=== PATIENT | male | born 1930 | race Caucasian/White ===

== ENCOUNTER 2016-11-09 13:12 | Outpatient (CLI) | payer MEDICARE, OTHER | END 2016-11-09 13:13 | disposition home or self-care (01) | DX: J43.9 Emphysema, unspecified (principal); J98.4 Other disorders of lung ==

== ENCOUNTER 2017-04-18 07:45 | Day surgery (SDC) | payer MEDICARE, OTHER ==
[~2017-04-18 07:45] MED LIST: BRIMONIDINE 0.2% OPHTH DROPS 5 ML ONE; TIMOLOL 0.5% OPHTH DROPS ONE
[2017-04-18] MEDS ORDERED: KETOROLAC 0.45% OPHTH DROPS ONE (07:54)
[2017-04-18] MEDS ORDERED: PHENYLEPHRINE 2.5% OPHTH 2 ML DROPS ONE (07:54)
[2017-04-18] MEDS ORDERED: PROPARACAINE 0.5% OPHTH DROPS 15 ML ONE (07:55)
[2017-04-18] MEDS ORDERED: CYCLOPENTOLATE 1% OPHTH DROPS 2 ML ONE (07:55)
[2017-04-18] MEDS ORDERED: CYCLOPENTOLATE 1% OPHTH DROPS 2 ML OPTH ONE (08:00)
[2017-04-18] MEDS ORDERED: PHENYLEPHRINE 2.5% OPHTH 2 ML DROPS OPTH ONE (08:00)
[2017-04-18] MEDS ORDERED: KETOROLAC 0.45% OPHTH DROPS OPTH ONE (08:00)
[2017-04-18] MEDS ORDERED: PROPARACAINE 0.5% OPHTH DROPS 15 ML OPTH ONE ×2 (08:00→08:21)
[2017-04-18] MEDS ORDERED: LACTATED RINGERS 500 ML IV ONE (08:19)
[2017-04-18] MEDS ORDERED: CHONDR SULF/HYALURONATE SYRINGE IO ONE (08:21)
[2017-04-18] MEDS ORDERED: EPINEPHrine 1 MG/ML AMP IVP ONE (08:21)
[2017-04-18] MEDS ORDERED: TIMOLOL 0.5% OPHTH DROPS OPTH ONE (08:21)
[2017-04-18] MEDS ORDERED: BRIMONIDINE 0.2% OPHTH DROPS 5 ML OPTH ONE (08:21)
[2017-04-18] MEDS ORDERED: BSS/LIDOCAINE/EPINEPHRINE 1 ML SYRINGE IO ONE ×2 (08:21)
[2017-04-18] MEDS ORDERED: TRIAMCIN/MOXIFLOX/VANCO 1 ML VIAL IO ONE ×2 (08:22)
[2017-04-18] MEDS ORDERED: MIDAZOLAM 2 MG/2 ML VIAL IVP ONE (08:29)
[2017-04-18 09:26] VITALS: BP 162/73
--- NOTE | 2017-04-18 09:34 | OPERATIVE REPORT ---
DATE OF SURGERY: 04/18/2017 00:00:00 PREOPERATIVE DIAGNOSIS: Visually significant cataract, left eye. This is his first cataract surgery. POSTOPERATIVE DIAGNOSIS: Visually significant cataract, left eye. This is his first cataract surgery. NAME OF PROCEDURE: Phacoemulsification posterior chamber intraocular lens implant, left eye. SURGEON: Evan Browne MD. ANESTHESIA: Monitored anesthesia care. COMPLICATIONS: None. OPERATIVE INDICATIONS: The patient is an 86-year-old man with progressive vision loss in the left eye due to 2+ nuclear sclerotic cataract. Best corrected visual acuity was 20/50 with glare to 20/70 in the left eye. Indications for surgery were overall decrease in vision, difficulty seeing words on a computer screen, and difficulty driving at night because of head lights from other vehicles and/or streetlights. He was consented at length concerning the risks and benefits of cataract surgery, after which he expressed a desire to proceed with surgery. OPERATIVE PROCEDURE: The patient was taken into OR #2 and placed under monitored anesthesia care. A surgical time-out was conducted confirming the correct patient, correct procedure, and correct surgical site. He was given topical anesthesia and then prepped and draped in the usual sterile fashion. The eye was entered at the 6- and 3 o'clock positions. Intracameral Shugarcaine was injected into the anterior chamber followed by Viscoat. A continuous tear curvilinear capsulorrhexis was performed. The nucleus was hydrodissected and phacoemulsified. The cortex was evacuated using automated infusion and aspiration (I/A). Provisc was injected in the capsular bag and a 25.0 diopter intraocular lens was inserted into the bag. Approximately 0.7 mL of a mixture of triamcinolone, moxifloxacin, and vancomycin was injected subconjunctivally in the superior quadrant for infection and inflammation prophylaxis. I/A was used to evacuate the viscoelastic materials. The eye was inflated to a physiologic pressure using balanced salt solution and found to be watertight. The patient was taken from the operating room in good condition and given postoperative instructions. JOB #: [id number] [facility] JOB #:[id number] [facility]ITAL[facility]aguft[facility]
== END 2017-04-18 07:46 | disposition home or self-care (01) ==
LOC: SDS 07:45
PROVIDERS: ATTEND Ophthalmology
PROC: 08RK3JZ Replacement of Left Lens with Synthetic Substitute, Percutaneous Approach (ICD-10-PCS; principal; 2017-04-18 09:00)
DX: H25.12 Age-related nuclear cataract, left eye (principal); J44.9 Chronic obstructive pulmonary disease, unspecified
CPT/HCPCS: 66984; A9270; J3490; V2632

== ENCOUNTER 2017-06-06 06:56 | Day surgery (SDC) | payer MEDICARE, OTHER ==
[2017-06-06] MEDS ORDERED: KETOROLAC 0.45% OPHTH DROPS ONE (07:01)
[2017-06-06] MEDS ORDERED: PHENYLEPHRINE 2.5% OPHTH 2 ML DROPS ONE (07:01)
[2017-06-06] MEDS ORDERED: CYCLOPENTOLATE 1% OPHTH DROPS 2 ML ONE (07:02)
[2017-06-06] MEDS ORDERED: PROPARACAINE 0.5% OPHTH DROPS 15 ML ONE (07:02)
[2017-06-06] MEDS ORDERED: LACTATED RINGERS 500 ML IV ONE (07:03)
[2017-06-06] MEDS ORDERED: TIMOLOL 0.5% OPHTH DROPS ONE (07:03)
[2017-06-06] MEDS ORDERED: BRIMONIDINE 0.2% OPHTH DROPS 5 ML ONE (07:03)
[2017-06-06] MEDS ORDERED: KETOROLAC 0.45% OPHTH DROPS OPTH ONE (07:15)
[2017-06-06] MEDS ORDERED: PROPARACAINE 0.5% OPHTH DROPS 15 ML OPTH ONE ×2 (07:15→08:28)
[2017-06-06] MEDS ORDERED: CYCLOPENTOLATE 1% OPHTH DROPS 2 ML OPTH ONE (07:15)
[2017-06-06] MEDS ORDERED: PHENYLEPHRINE 2.5% OPHTH 2 ML DROPS OPTH ONE (07:15)
[2017-06-06] MEDS ORDERED: MIDAZOLAM 2 MG/2 ML VIAL IVP ONE (07:30)
[2017-06-06] MEDS ORDERED: BRIMONIDINE 0.2% OPHTH DROPS 5 ML OPTH ONE (08:26)
[2017-06-06] MEDS ORDERED: EPINEPHrine 1 MG/ML AMP IVP ONE (08:28)
[2017-06-06] MEDS ORDERED: CHONDR SULF/HYALURONATE SYRINGE IO ONE (08:28)
[2017-06-06] MEDS ORDERED: TIMOLOL 0.5% OPHTH DROPS OPTH ONE (08:28)
[2017-06-06] MEDS ORDERED: BSS/LIDOCAINE/EPINEPHRINE 1 ML SYRINGE IO ONE (08:29)
[2017-06-06] MEDS ORDERED: TRIAMCIN/MOXIFLOX/VANCO 1 ML VIAL IO ONE (08:29)
[2017-06-06 08:34] VITALS: BP 111/56
--- NOTE | 2017-06-06 09:16 | OPERATIVE REPORT ---
DATE OF SURGERY: 06/06/2017 00:00:00 PREOPERATIVE DIAGNOSIS: Visually significant cataract, right eye. Cataract surgery was performed on t he left eye on 04/18/2017. POSTOPERATIVE DIAGNOSIS: Visually significant cataract, right eye. Cataract surgery was performed on the left eye on 04/18/2017. NAME OF PROCEDURE: Phacoemulsification posterior chamber intraocular lens implant, right eye. SURGEON: Evan Browne MD. ANESTHESIA: Monitored anesthesia care. COMPLICATIONS: None. OPERATIVE INDICATIONS: This is an 86-year-old man with progressive vision loss in the right eye due t o 2+ nuclear sclerotic cataract. Best corrected visual acuity was 20/30 with glare to 20/40 in the ri ght eye. INDICATIONS FOR SURGERY: Overall decrease in vision, difficulty reading, difficulty driving in low li ght or at night and difficulty driving at night because of headlights from other vehicles. He was con sented at length concerning the risks and benefits of cataract surgery, after which he expressed a de sire to proceed with surgery. OPERATIVE PROCEDURE: The patient was taken to OR #2 and placed under monitored anesthesia care. A francisca gical time-out was conducted confirming the correct patient, correct procedure and correct surgical s ite. He was given topical anesthesia and then prepped and draped in the usual sterile fashion. The ey e was entered at the 12 and 9 o'clock positions. Intracameral Shugarcaine was injected into the anter ior chamber followed by Viscoat. A continuous tear curvilinear capsulorrhexis was performed. Nucleus was hydrodissected and phacoemulsified. The cortex was evacuated using automated infusion aspiration. Provisc was injected into the capsular bag and a 24.5 diopter intraocular lens was inserted into the bag. Approximately 0.7 mL of a mixture of triamcinolone, moxifloxacin, and vancomycin was injected s ubconjunctivally in the superior quadrant for infection and inflammation prophylaxis. I/A was used to evacuate the viscoelastic materials. Of note, the IOL kept wanting to decenter superiorly, and sever al attempts to try to push it inferiorly were unsuccessful. So, I opted to sit the patient up immedia tely after closing the eye to let gravity help me out with that, but there was enough optic in the ce ntral axis to give him good vision, so I was not too concerned about it. The eye was inflated to phys iologic pressure using balanced salt solution and found to be watertight. The patient was taken from the operating room in good condition and given postoperative instructions. JOB #: [id number] EXT JOB #:[id number]
== END 2017-06-06 06:57 | disposition home or self-care (01) ==
LOC: SDS 06:56
PROVIDERS: ATTEND Ophthalmology
PROC: 08RJ3JZ Replacement of Right Lens with Synthetic Substitute, Percutaneous Approach (ICD-10-PCS; principal; 2017-06-06 08:00)
DX: H25.11 Age-related nuclear cataract, right eye (principal); J44.9 Chronic obstructive pulmonary disease, unspecified; Z86.73 Personal history of transient ischemic attack (TIA), and cerebral infarction without residual deficits; Z87.891 Personal history of nicotine dependence
CPT/HCPCS: 66984; A9270; J3490; V2632

== ENCOUNTER 2017-07-01 11:44 | Outpatient (CLI) | payer MEDICARE, OTHER ==
--- NOTE | 2017-07-01 12:40 | XRAY Report ---
TWO VIEW CHEST: 07/01/2017 CLINICAL INDICATION: Cough, COPD. FINDINGS: Frontal and lateral views of the chest are compared to previous films of 11/09/2016. The cardiac silhouette is within normal limits. The lungs again demonstrate severe emphysema. Pleural calcifications are again noted. No new consolidation, effusion, or pneumothorax is present. IMPRESSION: EMPHYSEMA. NO EVIDENCE OF ACUTE CARDIOPULMONARY DISEASE. JOB #: [id number] EXT JOB #:[id number]
== END 2017-07-01 11:45 | disposition home or self-care (01) ==
LOC: DI 11:44
PROVIDERS: ATTEND Physician Assistant
DX: J43.9 Emphysema, unspecified (principal)
CPT/HCPCS: 71020

== ENCOUNTER 2017-09-02 13:56 | Emergency (ER) | payer MEDICARE, OTHER ==
--- NOTE | 2017-09-02 14:58 | ED Physician Documentation ---
History of Present Illness - Stated complaint Stated Complaint: CHEST PX/LETHARGIC - Chief complaint Chief Complaint: Cardiac - Additonal information Additional information: hx from pt 86m cough cant clear mucous body aches fatigue and vomiting getting worse for a week using mucnex pulmicort and albuterol s relief Review of Systems Constitutional: reports: Chills, Myalgias, Fatigue. denies: Fever Cardiac: denies: Chest pain / pressure Respiratory: reports: Dyspnea, Cough GI: reports: Nausea, Vomiting. denies: Abdominal Pain Musculoskeletal: denies: Extremity swelling Neurologic: denies: Generalized weakness Immunocompromised: denies: Immunocompromised PD PAST MEDICAL HISTORY - Past Medical History Cardiovascular: None Respiratory: Asthma, COPD, Other Neuro: None Endocrine/Autoimmune: None GI: GI bleed, C.difficile : Benign prostate hypertrophy HEENT: Chronic vision loss Psych: None Musculoskeletal: Osteoarthritis, Other Derm: None - Past Surgical History Past Surgical History: Yes General: Colonoscopy, Other Ortho: Shoulder arthroplasty, Other HEENT: Tonsil/Adenoidectomy - Present Medications Home Medications: Ambulatory Orders Medication Instructions Recorded Confirmed Ipratropium/Albuterol Inhaler 1 puffs INH QID 12/12/13 09/02/17 [Combivent Inhaler] guaiFENesin [Mucinex] 600 mg PO DAILY 03/22/14 09/02/17 Albuterol [Ventolin Hfa] 2 puffs INH Q4H 04/17/17 09/02/17 Oseltamivir [Tamiflu] 75 mg PO BID #9 capsule 09/02/17 predniSONE [Deltasone] 60 mg PO DAILY 5 Days tablet 09/02/17 - Allergies Allergies/Adverse Reactions: Allergies Allergy/AdvReac Type Severity Reaction Status Date / Time No Known Drug Allergies Allergy Verified 09/02/17 14:38 - Social History Does the pt smoke?: No Smoking Status: Never smoker Does the pt drink ETOH?: No Does the pt have substance abuse?: No - Immunizations Immunizations are current?: Yes PD ED PE NORMAL - Vitals Vital signs reviewed: Yes - General General: Alert and oriented X 3 - HEENT HEENT: PERRL - Neck Neck: Supple, no meningeal sign - Cardiac Cardiac: RRR - Respiratory Respiratory: Other (coarse bilaterally) - Abdomen Abdomen: Soft, Non tender - Extremities Extremities: No deformity, No edema, No calf tenderness / cord - Neuro Neuro: Alert and oriented X 3 Results - Vitals Vitals: Vital Signs - 24 hr 09/02/17 09/02/17 14:34 15:00 Temperature 37.1 C Heart Rate 62 61 Respiratory 16 20 Rate Blood Pressure 178/71 H 146/58 H O2 Saturation 100 99 Oxygen O2 Source Room air - EKG (time done) 1407 Rate: Rate (enter#) (61) Rhythm: NSR [place]: Normal Ischemia: Normal ST segments - Labs Labs: Laboratory Tests 09/02/17 09/02/17 09/02/17 14:40 15:16 15:16 WBC 4.8 RBC 4.64 L Hgb 13.6 L Hct 41.4 L MCV 89.3 MCH 29.4 MCHC 32.9 RDW 13.6 Plt Count 136 MPV 8.0 Neut # 3.2 Lymph # 0.6 L [place] # 1.0 Eos # 0.0 Baso # 0.1 Absolute Nucleated RBC 0.00 Nucleated RBC % 0.0 Sodium 133 L Potassium 4.0 Chloride 95 L Carbon Dioxide 26 Anion Gap 12.0 BUN 17 Creatinine 1.0 Estimated GFR (MDRD) 71 L Glucose 104 H Calcium 8.9 Troponin I Influenza A (Rapid) Negative Influenza B (Rapid) Negative Influenza Types A,B Ag - 09/02/17 15:16 WBC RBC Hgb Hct MCV MCH MCHC RDW Plt Count MPV Neut # Lymph # [place] # Eos # Baso # Absolute Nucleated RBC Nucleated RBC % Sodium Potassium Chloride Carbon Dioxide Anion Gap BUN Creatinine Estimated GFR (MDRD) Glucose Calcium Troponin I < 0.04 Influenza A (Rapid) Influenza B (Rapid) Influenza Types A,B Ag - Rads (name of study) CXR Radiology: See rad report (NACPD - has some scarring or atelectasis RML but per rad no acute process) PD MEDICAL DECISION MAKING - ED course ED course: no pna flu swab neg but not sure of accuracy as hospital is apparently out of the viral swabs so this kits came with a plain cotton tip applicator instead of the usual viral swab and it was too stiff to reach deep into the nares - certainly his sx are c/w influenza and there is a major outbreak of both flu A and B in the community at this time and he has underlying lung dz so will tx clinically with nl O2 sats and other VS will try outpt tx spoke to pt and family at length, they are OK going home and understand reasons to return Departure - Departure Disposition: 01 Home, Self Care Clinical Impression: Influenza, COPD exacerbation Condition: Good Instructions: ED COPD Flare, ED Flu Follow-Up: Alec Ledbetter MD [Primary Care Provider] - Prescriptions: Oseltamivir [Tamiflu] 75 mg PO BID #9 capsule predniSONE [Deltasone] 60 mg PO DAILY 5 Days tablet
[2017-09-02 15:28] LABS: BASOPHILS # (AUTO) 0.1 10^3/uL (0.0-0.1); BASOPHILS % (AUTO) 2.3 %; HGB - HEMOGLOBIN 13.6 g/dL (14.0-18.0); LYMPHOCYTES # (AUTO) 0.6 10^3/uL (1.5-3.5); LYMPHOCYTES % (AUTO) 12.2 %; MEAN CORPUSCULAR HEMOGLOBIN 29.4 pg (27.0-31.0); MEAN CORPUSCULAR HGB CONC 32.9 g/dL (32.0-36.0); MEAN CORPUSCULAR VOLUME 89.3 fL (80.0-94.0); MONOCYTES % (AUTO) 19.9 %; NEUTROPHILS # (AUTO) 3.2 10^3/uL (1.5-6.6); NEUTROPHILS % (AUTO) 65.6 %; PLT - PLATELET COUNT 136 10^3/uL (130-450); RED BLOOD COUNT 4.64 10^6/uL (4.70-6.10); RED CELL DISTRIBUTION WIDTH 13.6 % (12.0-15.0); WHITE BLOOD COUNT 4.8 x10^3/uL (4.8-10.8)
[2017-09-02 15:37] LABS: CALCIUM 8.9 mg/dL (8.5-10.3)
--- NOTE | 2017-09-02 15:52 | XRAY Preliminary Report ---
Exam: XR CHEST 2 VIEW X-RAY IMPRESSION: Emphysema. Left calcified pleural plaques. No acute findings seen. [facility] SITE ID: [id number]
--- NOTE | 2017-09-02 15:57 | XRAY Report ---
EXAM: CHEST RADIOGRAPHY EXAM DATE: 09/02/2017 03:31 PM. CLINICAL HISTORY: Cough, chest pain, and shortness of air. COMPARISON: Chest 07/01/2017. TECHNIQUE: 2 views. FINDINGS: Hyperexpanded hyperlucent lungs again noted. Calcified pleural plaques on the left side again noted. Mild right base probable scarring, unchanged. Normal heart size. No acute cardiopulmonary disease see n. IMPRESSION: Emphysema. Left calcified pleural plaques. No acute findings seen. [facility] Referring Provider Line: [phone] SITE ID: [id number]
[2017-09-02] MEDS ORDERED: OSELTAMIVIR 75 MG CAPSULE PO STA (17:23)
[2017-09-02] MEDS ORDERED: predniSONE 20 MG TABLET PO STA (17:23)
[2017-09-02 18:23] VITALS: BP 150/63
== END 2017-09-02 18:20 | disposition home or self-care (01) ==
LOC: ED 13:56
DX: J11.1 Influenza due to unidentified influenza virus with other respiratory manifestations (principal); J44.1 Chronic obstructive pulmonary disease with (acute) exacerbation; N40.0 Benign prostatic hyperplasia without lower urinary tract symptoms; M19.90 Unspecified osteoarthritis, unspecified site
CPT/HCPCS: 36415; 71046; 80048; 84484; 85025; 87275; 87276; 93005; 99284; A9270; J7512

== ENCOUNTER 2017-09-08 12:12 | Emergency (ER) | payer MEDICARE, OTHER ==
--- NOTE | 2017-09-08 12:35 | ED Physician Documentation ---
PD HPI URI - Stated complaint Stated Complaint: MALAISE - Chief complaint Chief Complaint: General - History obtained from History obtained from: Patient - History of Present Illness Timing - onset: How many weeks ago (1) Timing duration: Weeks (1) Timing details: Abrupt onset (he started with cough and flu symptoms a week ago and has persisted. Seen in ED and Rx Albuterol, and steroids. Still feeling "like hell" and worse cough.), Still present Associated symptoms: Fever, Dry cough. No: Sore throat, Chest pain, NVD Contributing factors: COPD / asthma. No: Sick contact, Travel Similar symptoms before: Has not had sx before Recently seen: Emergency Dept Review of Systems Constitutional: reports: Fever, Chills, Myalgias Nose: denies: Rhinorrhea / runny nose, Congestion Throat: denies: Sore throat Cardiac: denies: Chest pain / pressure, Palpitations Respiratory: reports: Cough, Wheezing. denies: Dyspnea GI: denies: Nausea, Vomiting, Diarrhea Skin: denies: Rash, Lesions Neurologic: reports: Generalized weakness. denies: Focal weakness, Numbness, Near syncope PD PAST MEDICAL HISTORY - Past Medical History Cardiovascular: None Respiratory: Asthma, COPD, Other Neuro: None Endocrine/Autoimmune: None GI: GI bleed, C.difficile : Benign prostate hypertrophy HEENT: Chronic vision loss Psych: None Musculoskeletal: Osteoarthritis, Other Derm: None - Past Surgical History Past Surgical History: Yes General: Colonoscopy, Other Ortho: Shoulder arthroplasty, Other HEENT: Tonsil/Adenoidectomy - Present Medications Home Medications: Ambulatory Orders Medication Instructions Recorded Confirmed Ipratropium/Albuterol Inhaler 1 puffs INH QID 12/12/13 09/02/17 [Combivent Inhaler] guaiFENesin [Mucinex] 600 mg PO DAILY 03/22/14 09/02/17 Albuterol [Ventolin Hfa] 2 puffs INH Q4H 04/17/17 09/02/17 Oseltamivir [Tamiflu] 75 mg PO BID #9 capsule 09/02/17 predniSONE [Deltasone] 60 mg PO DAILY 5 Days tablet 09/02/17 Dexamethasone [Decadron] 4 mg PO DAILY #5 tablet 09/08/17 Doxycycline Monohydrate 100 mg PO BID #14 tablet 09/08/17 Loperamide [Imodium] 2 mg PO BID #14 capsule 09/08/17 Saccharomyces Boulardii [Florastor] 500 mg PO BID #28 capsule 09/08/17 - Allergies Allergies/Adverse Reactions: Allergies Allergy/AdvReac Type Severity Reaction Status Date / Time No Known Drug Allergies Allergy Verified 09/02/17 14:38 - Social History Does the pt smoke?: No Smoking Status: Never smoker Does the pt drink ETOH?: No Does the pt have substance abuse?: No - Immunizations Immunizations are current?: Yes PD ED PE NORMAL - Vitals Vital signs reviewed: Yes - General General: Alert and oriented X 3, No acute distress, Well developed/nourished - HEENT HEENT: Pharynx benign - Neck Neck: Supple, no meningeal sign, No adenopathy - Cardiac Cardiac: RRR, No murmur - Respiratory Respiratory: No: Clear bilaterally (some mild wheezing; no coarse sounds. ) - Abdomen Abdomen: Soft, Non tender - Back Back: No CVA TTP - Derm Derm: Normal color, Warm and dry - Extremities Extremities: No tenderness to palpate, Normal ROM s pain, No edema, No calf tenderness / cord - Neuro Neuro: Alert and oriented X 3, No motor deficit, Normal speech - Psych Psych: Normal mood, Normal affect Results - Vitals Vitals: Vital Signs - 24 hr 09/08/17 09/08/17 09/08/17 12:23 13:10 14:11 Temperature 36.4 C L Heart Rate 110 H 68 Respiratory 16 8 L Rate Blood Pressure 136/55 H O2 Saturation 99 09/08/17 16:35 Temperature Heart Rate 75 Respiratory 22 Rate Blood Pressure 164/72 H O2 Saturation 100 Oxygen O2 Source Room air - Labs Labs: Laboratory Tests 09/08/17 09/08/17 09/08/17 12:30 12:45 12:45 WBC 11.8 H RBC 4.76 Hgb 14.2 Hct 42.3 MCV 89.0 MCH 29.8 MCHC 33.5 RDW 13.7 Plt Count 141 MPV 8.7 Neut # 9.7 H Lymph # 0.8 L [place] # 1.3 H Eos # 0.0 Baso # 0.0 Absolute Nucleated RBC 0.00 Nucleated RBC % 0.0 Sodium 131 L Potassium 3.9 Chloride 93 L Carbon Dioxide 26 Anion Gap 12.0 BUN 19 Creatinine 1.0 Estimated GFR (MDRD) 71 L Glucose 131 H Calcium 9.4 Total Bilirubin 1.4 H AST 15 ALT 15 Alkaline Phosphatase 51 Troponin I B-Natriuretic Peptide Total Protein 7.1 Albumin 3.7 Globulin 3.4 Albumin/Globulin Ratio 1.1 Lipase 17 L Influenza A (Rapid) Negative Influenza B (Rapid) Negative Influenza Types A,B Ag - 09/08/17 09/08/17 12:45 12:45 WBC RBC Hgb Hct MCV MCH MCHC RDW Plt Count MPV Neut # Lymph # [place] # Eos # Baso # Absolute Nucleated RBC Nucleated RBC % Sodium Potassium Chloride Carbon Dioxide Anion Gap BUN Creatinine Estimated GFR (MDRD) Glucose Calcium Total Bilirubin AST ALT Alkaline Phosphatase Troponin I < 0.04 B-Natriuretic Peptide 40 Total Protein Albumin Globulin Albumin/Globulin Ratio Lipase Influenza A (Rapid) Influenza B (Rapid) Influenza Types A,B Ag - Rads (name of study) chest Radiology: Prelim report reviewed (left lung focal infiltrates c/w pneumonia), EMP read contemporaneously PD MEDICAL DECISION MAKING - ED course Complexity details: reviewed results (focal infiltrates (small) left lung compared to prior. Dx pneumonia. prior scarring left lung similar to prior. ), considered differential, d/w patient Departure - Departure Disposition: 01 Home, Self Care Clinical Impression: Flu-like symptoms Pneumonia Qualifiers: Pneumonia type: due to unspecified organism Laterality: left Lung location: unspecified part of lung Qualified Code(s): J18.9 - Pneumonia, unspecified organism Condition: Stable Record reviewed to determine appropriate education?: Yes Instructions: ED Pneumonia Adult Follow-Up: Alec Ledbetter MD [Primary Care Provider] - Prescriptions: Dexamethasone [Decadron] 4 mg PO DAILY #5 tablet Doxycycline Monohydrate 100 mg PO BID #14 tablet Loperamide [Imodium] 2 mg PO BID #14 capsule Saccharomyces Boulardii [Florastor] 500 mg PO BID #28 capsule Comments: Your x-ray does appear that you are developing some pneumonia. Otherwise your blood count is still good. This sounds generally like a flu type illness with now some pneumonia as well. We will add doxycycline twice daily for a week. Along with that to use Imodium twice daily and a probiotic Florastor twice daily as well. This would to minimize the diarrhea/GI side effects of the antibiotic. Continue the prednisone another 5 days. Continue your albuterol inhaler 2 puffs 4 times a day. Follow-up with your primary care in the next 2- 3 days. Return sooner if worse. Discharge Date/Time: 09/08/17 17:00
[2017-09-08 12:54] LABS: BASOPHILS % (AUTO) 0.1 %; HGB - HEMOGLOBIN 14.2 g/dL (14.0-18.0); LYMPHOCYTES # (AUTO) 0.8 10^3/uL (1.5-3.5); LYMPHOCYTES % (AUTO) 6.8 %; MEAN CORPUSCULAR HEMOGLOBIN 29.8 pg (27.0-31.0); MEAN CORPUSCULAR HGB CONC 33.5 g/dL (32.0-36.0); MEAN PLATELET VOLUME 8.7 fL (7.4-11.4); MONOCYTES # (AUTO) 1.3 10^3/uL (0.0-1.0); NEUTROPHILS # (AUTO) 9.7 10^3/uL (1.5-6.6); NEUTROPHILS % (AUTO) 82.1 %; PLT - PLATELET COUNT 141 10^3/uL (130-450); RED BLOOD COUNT 4.76 10^6/uL (4.70-6.10); RED CELL DISTRIBUTION WIDTH 13.7 % (12.0-15.0); WHITE BLOOD COUNT 11.8 x10^3/uL (4.8-10.8)
[2017-09-08] MEDS ORDERED: ALBUTEROL NEB 2.5 MG/3 ML INH STA (12:55)
[2017-09-08 13:05] LABS: ALBUMIN 3.7 g/dL (3.2-5.5); ALBUMIN/GLOBULIN RATIO 1.1 (1.0-2.2); BILIRUBIN,TOTAL 1.4 mg/dL (0.2-1.0); CALCIUM 9.4 mg/dL (8.5-10.3); TOTAL PROTEIN 7.1 g/dL (6.7-8.2)
--- NOTE | 2017-09-08 13:38 | XRAY Report ---
EXAM: CHEST RADIOGRAPHY EXAM DATE: 09/08/2017 01:02 PM. CLINICAL HISTORY: Productive cough. COMPARISON: 2 view chest 09/02/2017. TECHNIQUE: 1 view. FINDINGS: There are large lung volumes and flat hemidiaphragms. Calcified left pleural plaques are noted. Stable basilar scarring. Mild left mid and lower lung patchy opacity is more conspicuous on today's exam. No pneumothorax or obvious pleural effusion. Mediastinum stable. IMPRESSION: Mild left mid and lower lung patchy opacity is more conspicuous today. Correlate clinical ly for pneumonia. [facility] Referring Provider Line: [phone] SITE ID: [id number]
[2017-09-08] MEDS ORDERED: DOXYCYCLINE 100 MG TABLET PO STA (14:47)
[2017-09-08] MEDS ORDERED: SACCHAROMYCES BOULARDII 250 MG CAPSULE PO STA (14:47)
[2017-09-08 17:11] VITALS: BP 164/72
== END 2017-09-08 17:00 | disposition home or self-care (01) ==
LOC: ED 12:12
DX: J18.9 Pneumonia, unspecified organism (principal); J44.9 Chronic obstructive pulmonary disease, unspecified; Z79.51 Long term (current) use of inhaled steroids; Z79.52 Long term (current) use of systemic steroids
CPT/HCPCS: 36415; 71045; 80053; 83690; 83880; 84484; 85025; 87275; 87276; 93005; 94640; 99283; 99284; A9270; J7613

== ENCOUNTER 2017-09-27 13:59 | Outpatient (CLI) | payer MEDICARE, OTHER ==
--- NOTE | 2017-09-27 17:19 | XRAY Report ---
TWO VIEW CHEST: 09/27/2017 CLINICAL INDICATION: Followup pneumonia, COPD. COMPARISON: 09/08/2017. FINDINGS: Frontal and lateral views of the chest again demonstrate extensive emphysema. Left greater than right calcified pleural plaquing is again noted. There is new parenchymal consolidation at the left base. No effusion or pneumothorax is present. IMPRESSION: NEW LEFT BASILAR INFILTRATE. STABLE EMPHYSEMA AND CALCIFIED PLEURAL PLAQUING. TD: 09/27/2017 17:18
== END 2017-09-27 14:00 | disposition home or self-care (01) ==
LOC: DI 13:59
PROVIDERS: ATTEND Internal Medicine
DX: J18.9 Pneumonia, unspecified organism (principal); J43.9 Emphysema, unspecified
CPT/HCPCS: 71046

== ENCOUNTER 2017-10-31 12:49 | Outpatient (CLI) | payer MEDICARE, OTHER ==
--- NOTE | 2017-11-01 09:34 | XRAY Report ---
TWO VIEW CHEST: 10/31/2017. COMPARISON: Two view chest 09/27/[address] 05/25/2014. INDICATION Followup for pneumonia. TECHNIQUE: Two views. FINDINGS: There are calcified pleural plaques. There are large lung volumes with flattening of the diaphragms. No pneumothorax or pleural effusion. Mediastinum otherwise unremarkable. IMPRESSION: STABLE APPEARING PLEURAL PLAQUES. NO EVIDENCE OF PNEUMONIA. PREVIOUSLY DESCRIBED LEFT BASILAR CONSOLIDATION IS FAVORED TO REPRESENT AN ADDITIONAL PLEURAL PLAQUE. TD: 11/01/2017 09:33 MTDD
== END 2017-10-31 12:50 | disposition home or self-care (01) ==
LOC: DI 12:49
PROVIDERS: ATTEND Internal Medicine
DX: J92.9 Pleural plaque without asbestos (principal)
CPT/HCPCS: 71046

== ENCOUNTER 2018-03-25 16:46 | Emergency (ER) | payer MEDICARE, OTHER ==
[2018-03-25 18:25] LABS: BASOPHILS % (AUTO) 0.4 %; EOSINOPHILS # (AUTO) 0.1 10^3/uL (0.0-0.7); EOSINOPHILS % (AUTO) 0.6 %; HGB - HEMOGLOBIN 12.9 g/dL (14.0-18.0); LYMPHOCYTES # (AUTO) 1.4 10^3/uL (1.5-3.5); LYMPHOCYTES % (AUTO) 17.3 %; MEAN CORPUSCULAR HEMOGLOBIN 29.5 pg (27.0-31.0); MEAN CORPUSCULAR HGB CONC 33.2 g/dL (32.0-36.0); MEAN CORPUSCULAR VOLUME 88.7 fL (80.0-94.0); MEAN PLATELET VOLUME 8.6 fL (7.4-11.4); MONOCYTES # (AUTO) 1.1 10^3/uL (0.0-1.0); MONOCYTES % (AUTO) 12.8 %; NEUTROPHILS # (AUTO) 5.7 10^3/uL (1.5-6.6); NEUTROPHILS % (AUTO) 68.9 %; PLT - PLATELET COUNT 155 10^3/uL (130-450); RED BLOOD COUNT 4.39 10^6/uL (4.70-6.10); RED CELL DISTRIBUTION WIDTH 13.5 % (12.0-15.0); WHITE BLOOD COUNT 8.2 x10^3/uL (4.8-10.8)
[2018-03-25 18:35] LABS: ALBUMIN 3.5 g/dL (3.2-5.5); BILIRUBIN,TOTAL 0.9 mg/dL (0.2-1.0); CREATININE 0.9 mg/dL (0.6-1.2)
[2018-03-25 20:10] LABS: BILIRUBIN,URINE NEGATIVE (NEGATIVE); GLUCOSE, URINE (UA) NEGATIVE (NEGATIVE); KETONES,URINE (UA) NEGATIVE (NEGATIVE); LEUKOCYTE ESTERASE, URINE LARGE (NEGATIVE); NITRITE,URINE NEGATIVE (NEGATIVE); OCCULT BLOOD,URINE TRACE-INTA (NEGATIVE); PROTEIN,URINE NEGATIVE (NEGATIVE); UROBILINOGEN,URINE 1 (NORMAL) E.U./dL (NORMAL)
[2018-03-25 20:11] LABS: CLARITY,URINE CLEAR (CLEAR)
[2018-03-25 20:20] LABS: BACTERIA,URINE Few /HPF (None Seen); RBC,URINE 0-5 /HPF (0-5); SQUAMOUS EPITHELIAL CELL,UR FEW Squamous (<= Few)
--- NOTE | 2018-03-25 20:31 | ED Physician Documentation ---
History of Present Illness - Stated complaint Stated Complaint: CONFUSED/TIRED - Chief complaint Chief Complaint: Neuro - History obtained from History obtained from: Patient - History of Present Illness Timing: Yesterday Pain level max: 0 Pain level now: 0 Improved by: rest - Additonal information Additional information: c/o gen. fatigue, sleeping more than usual (most of the day today). Review of Systems Constitutional: reports: Fatigue. denies: Fever, Chills, Myalgias, Sweats Cardiac: reports: Reviewed and negative Respiratory: reports: Reviewed and negative GI: reports: Reviewed and negative : reports: Frequency. denies: Dysuria PD PAST MEDICAL HISTORY - Past Medical History Cardiovascular: None Respiratory: Asthma, COPD, Other Endocrine/Autoimmune: None GI: GI bleed, C.difficile : Benign prostate hypertrophy HEENT: Chronic vision loss Psych: None Musculoskeletal: Osteoarthritis, Other Derm: None - Past Surgical History Past Surgical History: Yes General: Colonoscopy, Other Ortho: Shoulder arthroplasty, Other HEENT: Tonsil/Adenoidectomy - Present Medications Home Medications: Ambulatory Orders Medication Instructions Recorded Confirmed Ipratropium/Albuterol Inhaler 1 puffs INH QID 12/12/13 09/02/17 [Combivent Inhaler] guaiFENesin [Mucinex] 600 mg PO DAILY 03/22/14 09/02/17 Albuterol [Ventolin Hfa] 2 puffs INH Q4H 04/17/17 09/02/17 Oseltamivir [Tamiflu] 75 mg PO BID #9 capsule 09/02/17 predniSONE [Deltasone] 60 mg PO DAILY 5 Days tablet 09/02/17 Dexamethasone [Decadron] 4 mg PO DAILY #5 tablet 09/08/17 Doxycycline Monohydrate 100 mg PO BID #14 tablet 09/08/17 Loperamide [Imodium] 2 mg PO BID #14 capsule 09/08/17 Saccharomyces Boulardii [Florastor] 500 mg PO BID #28 capsule 09/08/17 Amox/Clav 875/125 [Augmentin] 1 each PO Q12H #19 tablet 03/25/18 Saccharomyces Boulardii [Florastor] 500 mg PO BID #20 capsule 03/25/18 - Allergies Allergies/Adverse Reactions: Allergies Allergy/AdvReac Type Severity Reaction Status Date / Time No Known Drug Allergies Allergy Verified 03/25/18 17:03 - Social History Does the pt smoke?: No Smoking Status: Never smoker Does the pt drink ETOH?: No Does the pt have substance abuse?: No - Immunizations Immunizations are current?: Yes PD ED PE NORMAL - Vitals Vital signs reviewed: Yes - General General: Alert and oriented X 3, No acute distress, Well developed/nourished - HEENT HEENT: PERRL, EOMI, Moist mucous membranes - Cardiac Cardiac: RRR, No murmur - Respiratory Respiratory: No respiratory distress, Clear bilaterally - Abdomen Abdomen: Soft, Non tender - Back Back: No CVA TTP - Derm Derm: Normal color, Warm and dry, No rash - Extremities Extremities: No edema - Neuro Neuro: Alert and oriented X 3 Results - Vitals Vitals: Oxygen O2 Source Room air - Labs Labs: Microbiology 03/25/18 19:10 Urine Culture - Preliminary Urine,Random CULTURE IN PROGRESS. RESULTS TO FOLLOW. Laboratory Tests 03/25/18 03/25/18 03/25/18 17:11 17:11 19:10 WBC 8.2 RBC 4.39 L Hgb 12.9 L Hct 39.0 L MCV 88.7 MCH 29.5 MCHC 33.2 RDW 13.5 Plt Count 155 MPV 8.6 Neut # (Auto) 5.7 Lymph # (Auto) 1.4 L [place] # (Auto) 1.1 H Eos # (Auto) 0.1 Baso # (Auto) 0.0 Absolute Nucleated RBC 0.00 Nucleated RBC % 0.0 Sodium 134 L Potassium 4.0 Chloride 100 L Carbon Dioxide 26 Anion Gap 8.0 BUN 19 Creatinine 0.9 Estimated GFR (MDRD) 80 L Glucose 128 H Calcium 9.0 Total Bilirubin 0.9 AST 18 ALT 12 Alkaline Phosphatase 50 Total Protein 7.0 Albumin 3.5 Globulin 3.5 Albumin/Globulin Ratio 1.0 Lipase 22 Urine Color YELLOW Urine Clarity CLEAR Urine pH 6.0 Ur Specific [place] 1.010 Urine Protein NEGATIVE Urine Glucose (UA) NEGATIVE Urine Ketones NEGATIVE Urine Occult Blood TRACE-INTA Urine Nitrite NEGATIVE Urine Bilirubin NEGATIVE Urine Urobilinogen 1 (NORMAL) Ur Leukocyte Esterase LARGE H Urine RBC 0-5 Urine WBC >25 H Ur Squamous Epith Cells FEW Squamous Urine Bacteria Few Ur Microscopic Review INDICATED Urine Culture Comments INDICATED PD MEDICAL DECISION MAKING - ED course Complexity details: reviewed results, re-evaluated patient, considered differential, d/w patient - Sepsis Event Vital Signs: Oxygen O2 Source Room air Departure - Departure Disposition: 01 Home, Self Care Clinical Impression: UTI (urinary tract infection) Condition: Good Instructions: ED UTI Cystitis Male Follow-Up: Alec Ledbetter MD [Primary Care Provider] - Prescriptions: Amox/Clav 875/125 [Augmentin] 1 each PO Q12H #19 tablet Saccharomyces Boulardii [Florastor] 500 mg PO BID #20 capsule Comments: Your tests tonight suggest that you have a urinary tract infection. This requires an antibiotic. I understand your concern regarding c. diff, but, unfortunately, all antibiotics have a potential to cause c. diff, and the ones that are less likely to cause c. diff tend to be less effective for urinary tract infections. You can contact your primary care provider in the morning to ask if they recommend a change in the antibiotic I have prescribed, but I strongly recommend that you take the antibiotic to prevent the urinary tract infection from getting worse and possibly getting into your blood and causing a serious infection. Discharge Date/Time: 03/25/18 21:18
[2018-03-25] MEDS ORDERED: AMOX/CLAV 875 MG/125 MG TABLET PO STA (20:49)
[2018-03-25 21:16] VITALS: BP 172/62
== END 2018-03-25 21:18 | disposition home or self-care (01) ==
LOC: ED 16:46
DX: N39.0 Urinary tract infection, site not specified (principal)
CPT/HCPCS: 36415; 80053; 81001; 83690; 85025; 87086; 93005; 99283; 99284; A9270; 81003